=== PATIENT | female | born 1995 | race Caucasian/White ===

== ENCOUNTER 2020-07-12 13:53 | Outpatient (RCR) | payer OTHER, SELFPAY ==
[2019-01-01 12:08] VITALS: BMI 21.1
== END 2020-08-28 23:59 ==
LOC: IMMUN 13:53
PROVIDERS: PCP Family Medicine; Referring Provider Family Medicine; Visit Provider Family Medicine
DX: Z23 Encounter for immunization (principal)
CPT/HCPCS: 0001A; 0002A; 91300